=== PATIENT | male | born 1990 | race Caucasian/White ===

== ENCOUNTER 2019-01-16 15:29 | Emergency (ER) | payer OTHER ==
[2019-01-16 15:59] VITALS: BP 140/80
--- NOTE | 2019-01-16 15:59 | ED ---
Neck Pain - HPI Summary HPI Summary: 28 yr old male with the complaint of right mandibular neck pain. Onset over the past couple of months with associated feeling a mass in his neck area under the right side angle of mandible area. He states the pain has been radiating up into his right frontal area at times lasting a few seconds. He is pain free presently, but is concerned for an abscess or tumor. He denies change in vision, speech, hearing, swallowing. Denies focal weakness. Denies numbness. He states he has been able to drive his car and do what he normally does with no impairment. - History of Current Complaint Chief Complaint: UCHeadache Stated Complaint: JAW PAIN Time Seen by Provider: 01/16/19 15:42 Pain Intensity: 3 - Allergies/Home Medications Allergies/Adverse Reactions: Allergies Allergy/AdvReac Type Severity Reaction Status Date / Time No Known Allergies Allergy Verified 01/16/19 15:41 Home Medications: Home Medications Acetaminophen TAB* [Tylenol TAB*] 500 mg PO Q6HR 01/16/19 [History Confirmed 04/01] PMH/Surg Hx/FS Hx/Imm Hx Cardiovascular History: Reports: Hx Hypertension Musculoskeletal History: Denies: Hx Scoliosis Neurological History: Reports: Other Neuro Impairments/Disorders - ? 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 Infectious Disease History: No Infectious Disease History: Denies: Traveled Outside the [place] in Last 30 Days - Family History Known Family History: Positive: None - Social History Occupation: Employed Full-time Alcohol Use: None Substance Use Type: Reports: Marijuana Substance Use Comment - Amount & Last Used: occasional Hx Tobacco Use: Yes Smoking Status (MU): Current Every Day Smoker Review of Systems Constitutional: Negative Positive: Other - pain right neck, angle mandilbe with some mass All Other Systems Reviewed And Are Negative: Yes Physical Exam Triage Information Reviewed: Yes Vital Signs On Initial Exam: Initial Vitals Temp Pulse Resp Pulse Ox 96 F 94 18 98 01/16/19 15:32 01/16/19 15:32 01/16/19 15:32 01/16/19 15:32 Vital Signs Reviewed: Yes Appearance: Positive: Obese Skin: Positive: Warm, Skin Color Reflects Adequate Perfusion Head/Face: Positive: Normal Head/Face Inspection Eyes: Positive: EOMI, BLADIMIR ENT: Positive: Pharynx normal, TMs normal, Uvula midline, Other - right side of neck with small mass size of lymph node felt, and mild tender. He has obese neck so difficult to feel deeply. Patient feels the mass is a lot larger to him.. Negative: Trismus, Muffled voice, Hoarse voice Neck: Positive: Supple, Tenderness @ - angle mandible and upper anterior cervical area on right side. Respiratory/Lung Sounds: Positive: Clear to Auscultation, Breath Sounds Present. Negative: Stridor Cardiovascular: Positive: RRR. Negative: Murmur Abdomen Description: Negative: Distended Musculoskeletal: Positive: Strength/ROM Intact Neurological: Positive: Sensory/Motor Intact, Alert, Oriented to Person Place, Time, CN Intact II-III, Normal Gait, Speech Normal Psychiatric: Positive: Normal - Celia Coma Scale Best Eye Response: 4 - Spontaneous Best Motor Response: 6 - Obeys Commands Best Verbal Response: 5 - Oriented Coma Scale Total: 15 Diagnostics - Vital Signs Vital Signs Temp Pulse Resp Pulse Ox 01/16/19 15:32 96 F 94 18 98 - Laboratory Lab Statement: Any lab studies that have been ordered have been reviewed, and results considered in the medical decision making process. Neck Course/Dx - Course Course Of Treatment: 28 yr old male with right side neck pain and mild swelling. He does not want an ambulance. He wants to go to the ER by his own car. He seems stable to do that. He will require labs and iv contrast imaging to rule out mass. - Diagnoses Provider Diagnoses: Neck pain, Mass of right side of neck, Elevated blood pressure reading Discharge - Sign-Out/Discharge Documenting (check all that apply): Patient Departure All imaging exams completed and their final reports reviewed: No Studies - Discharge Plan Condition: Good Disposition: HOME-RECOMMEND TO ED Patient Education Materials: Mastoiditis in Children (ED), Neck Pain (ED), Hypertension (ED) Referrals: No Primary Care Phys,NOPCP [Primary Care Provider] - [facility] [Outside] Additional Instructions: Be sure to go to the ER immediately upon leaving here. You have been offered an ambulance but have stated you want to drive yourself. - Billing Disposition and Condition Condition: GOOD Disposition: Home-Recommend to ED
== END 2019-01-16 16:10 | disposition home health service (06) ==
LOC: UCEAST 15:29
DX: M54.2 Cervicalgia (principal); R22.1 Localized swelling, mass and lump, neck; R30.0 Dysuria; F17.210 Nicotine dependence, cigarettes, uncomplicated
CPT/HCPCS: 99212; G0463

== ENCOUNTER → 2019-01-16 16:33 | Emergency (ER) | payer OTHER ==
[~2019-01-16 16:33] MED LIST: Amoxicillin/Clavulanate TAB* 500 MG PO ONE; Iohexol 300* (CONTRAST) 10 ML SDV IV ONE
--- NOTE | 2019-01-16 18:06 | ED ---
Neck Pain - HPI Summary HPI Summary: 28 year old male presents with right-sided jaw pain for the past 2 days. He states he's had a lump for the past couple months. He states that couple days ago started draining. He denies any fevers. No sore throat. He states that his pain leading up to the side of his head. Denies any change in vision or hearing. Denies any dental pain. No sore throat. No chest pain or shortness breath. Has no medical conditions. - History of Current Complaint Chief Complaint: EDNeckComplaint Stated Complaint: MASS ON NECK PER PT Time Seen by Provider: 01/16/19 17:24 Pain Intensity: 1 - Allergies/Home Medications Allergies/Adverse Reactions: Allergies Allergy/AdvReac Type Severity Reaction Status Date / Time chloral hydrate Allergy See Comment Verified 01/16/19 18:39 PMH/Surg Hx/FS Hx/Imm Hx Endocrine/Hematology History: Denies: Hx Anticoagulant Therapy Cardiovascular History: Reports: Hx Hypertension Musculoskeletal History: Denies: Hx Scoliosis Neurological History: Reports: Other Neuro Impairments/Disorders - ? 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 Infectious Disease History: No Infectious Disease History: Denies: Traveled Outside the [place] in Last 30 Days - Family History Known Family History: Positive: None - Social History Alcohol Use: None Substance Use Type: Reports: Marijuana Substance Use Comment - Amount & Last Used: occasional Hx Tobacco Use: Yes Smoking Status (MU): Current Every Day Smoker Review of Systems Negative: Fever Positive: Other - jaw pain Negative: Chest Pain Negative: Shortness Of Breath All Other Systems Reviewed And Are Negative: Yes Physical Exam Triage Information Reviewed: Yes Vital Signs On Initial Exam: Initial Vitals Temp Pulse Resp BP Pulse Ox 97.0 F 86 16 155/111 97 01/16/19 16:37 01/16/19 16:37 01/16/19 16:37 01/16/19 16:37 01/16/19 16:37 Vital Signs Reviewed: Yes Appearance: Positive: Well-Appearing Skin: Positive: Warm, Dry Head/Face: Positive: Normal Head/Face Inspection Eyes: Positive: Normal, EOMI, BLADIMIR, Conjunctiva Clear ENT: Positive: Normal ENT inspection, Pharynx normal, TMs normal Neck: Positive: Supple, Other: - small mobile mass felt on right side neck Respiratory/Lung Sounds: Positive: Clear to Auscultation, Breath Sounds Present Cardiovascular: Positive: Normal, RRR Abdomen Description: Positive: Nontender, Soft Bowel Sounds: Positive: Present Musculoskeletal: Positive: Normal Neurological: Positive: Normal Psychiatric: Positive: Normal Diagnostics - Vital Signs Vital Signs Temp Pulse Resp BP Pulse Ox 01/16/19 16:37 97.0 F 86 16 155/111 97 - Laboratory Result Diagrams: 01/16/19 18:15 01/16/19 18:15 Lab Statement: Any lab studies that have been ordered have been reviewed, and results considered in the medical decision making process. - CT neck CT Interpretation Completed By: Radiologist Summary of CT Findings: IMPRESSION: No CT findings to correlate with patient's symptomatology. Specifically no. right neck masses or inflammation. Neck Course/Dx - Course Course Of Treatment: 28 year old male presents with right-sided jaw pain for the past 2 days. He states he's had a lump for the past couple months. He states that couple days ago started draining. He denies any fevers. No sore throat. He states that his pain leading up to the side of his head. Denies any change in vision or hearing. Denies any dental pain. No sore throat. No chest pain or shortness breath. Has no medical conditions. On exam has small mobile 1cm mass felt on right side of jaw We will get a CT. wbc and CRP normal. CT shows no acute findings. discussed could be abscess vs lymph node. will place on augmentin. told to follow up with [facility] as blood pressure is elevated at this time. denies any chest pain or SOB. patient understand and agrees with plan. - Diagnoses Differential Dx/HQI/PQRI: Positive: Other - abscess, lymphadenitits, osteo Provider Diagnoses: Neck mass Discharge - Sign-Out/Discharge Documenting (check all that apply): Patient Departure Patient Received Moderate/Deep Sedation with Procedure: No - Discharge Plan Condition: Good Disposition: HOME Prescriptions: Amoxicillin/Clavulanate TAB* [Augmentin TAB 500 mg*] 500 mg PO BID #13 tab Patient Education Materials: Adenitis (ED) Referrals: [facility] [Outside] Additional Instructions: nothing was seen on CT. on exam appears to most like lymph node Take augmentin twice a day for 7 days Can apply heat to the area Follow up with primary Return to ED if develop any new or worsening symptoms - Billing Disposition and Condition Condition: GOOD Disposition: Home
[2019-01-16 18:22] LABS: ABS Basophils 0.1 10^3/ul (0-0.2); ABS Eosinophils 0 10^3/ul (0-0.6); ABS Lymphocytes 2.7 10^3/ul (1.0-4.8); ABS Monocytes 0.4 10^3/ul (0-0.8); ABS Neutrophils 7.1 10^3/ul (1.5-7.7); ABS Nucleated RBC 0 10^3/ul; Eosinophil % 0.5 %; Hematocrit 46 % (42-52); Hemoglobin 15.8 g/dl (14.0-18.0); Lymphocyte % 26.2 %; Mean Corpuscular HGB Conc 35 g/dl (31-36); Mean Corpuscular Hemoglobin 29 pg (27-31); Mean Corpuscular Volume 84 fL (80-94); Mean Platelet Volume 6.9 fL (7.4-10.4); Nucleated Red Blood Cells % 0.1; Platelet Count 269 10^3/ul (150-450); Red Blood Count 5.43 10^6/ul (4.00-5.40); Red Cell Distribution Width 13 % (10.5-15); White Blood Count 10.3 10^3/ul (3.5-10.8)
[2019-01-16 18:40] LABS: Albumin 4.5 g/dL (3.2-5.2); Albumin/Globulin Ratio 1.6 (1-3); BUN/Creatinine Ratio 16.5 (8-20); C Reactive Protein 7.74 mg/L (<8.01); Calcium 9.1 mg/dL (8.6-10.3); EGFR African American 128.1 (>60); EGFR Non-African American 105.8 (>60); Globulin 2.9 g/dL (2-4); Potassium 3.8 mmol/L (3.5-5.0); Total Bilirubin 0.4 mg/dL (0.2-1.0); Total Protein 7.4 g/dL (6.4-8.9)
[2019-01-16 20:51] VITALS: BP 179/114
== END | disposition home or self-care (01) ==
LOC: ED 16:33
DX: R22.1 Localized swelling, mass and lump, neck (principal); R68.84 Jaw pain; F17.210 Nicotine dependence, cigarettes, uncomplicated
CPT/HCPCS: 36415; 70491; 80053; 85025; 86140; 99282; A9270-GY; Q9967

== ENCOUNTER 2019-09-28 16:34 | Emergency (ER) | payer OTHER ==
--- NOTE | 2019-09-28 17:09 | UC ---
Throat Pain/Nasal Ej HPI - HPI Summary HPI Summary: 29-year-old male comes a chief complaint of upper respiratory tract infection symptoms 3 days. Got runny nose sore throat cough chest congestion. No fevers measured. No wheezing. Had history of an asthma as a child but no longer has asthma. He's tried [id number] medications which do help with the symptoms. - History of Current Complaint Chief Complaint: UCRespiratory Stated Complaint: COLD SYMPTOMS Time Seen by Provider: 09/28/19 16:40 Pain Intensity: 0 - Allergies/Home Medications Allergies/Adverse Reactions: Allergies Allergy/AdvReac Type Severity Reaction Status Date / Time chloral hydrate Allergy See Comment Verified 09/28/19 16:50 Home Medications: Home Medications Guaifen/Dextromethorphan/PE [Mucinex Fast-Max Congest-Cough] 1 tab PO Q8HR 09/28 [History Confirmed 09/28/19] Guaifen/Phenyleph/Acetaminophn [Tylenol Sinus Severe Caplet] 1 tab PO Q8HR 09/28 [History Confirmed 09/28/19] PMH/Surg Hx/FS Hx/Imm Hx Previously Healthy: Yes Other History Of: Negative For: Anticoagulant Therapy - Surgical History Surgical History: None Surgery Procedure, Year, and Place: 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 - Family History Known Family History: Positive: None - Social History Alcohol Use: None Substance Use Type: Marijuana Substance Use Comment - Amount & Last Used: occasional Smoking Status (MU): Former Smoker When Did the Patient Quit Smoking/Using Tobacco: one year Review of Systems All Other Systems Reviewed And Are Negative: Yes Constitutional: Positive: Other - SEE HPI Skin: Positive: Negative Eyes: Positive: Negative ENT: Positive: Sore Throat, Nasal Discharge, Sinus Congestion Respiratory: Positive: Cough Cardiovascular: Positive: Negative Gastrointestinal: Positive: Negative Motor: Positive: Negative Neurovascular: Positive: Negative Musculoskeletal: Positive: Negative Neurological: Positive: Negative Psychological: Positive: Negative Is Patient Immunocompromised?: No Physical Exam Triage Information Reviewed: Yes Appearance: No Pain Distress, Well-Nourished, Ill-Appearing - MILD Vital Signs: Initial Vital Signs Temp 96.9 F 09/28/19 16:43 Pulse 98 09/28/19 16:43 Resp 18 09/28/19 16:43 Pulse Ox 98 11/15/19 16:43 Vital Signs Reviewed: Yes Eye Exam: Normal Eyes: Positive: Conjunctiva Clear ENT: Positive: Pharyngeal erythema, Nasal congestion, Nasal drainage, TMs normal Neck: Positive: Supple Respiratory: Positive: No respiratory distress, Rhonchi Cardiovascular: Positive: RRR Musculoskeletal: Positive: Strength Intact, ROM Intact Neurological: Positive: Alert, Muscle Tone Normal Psychological: Positive: Age Appropriate Behavior Skin Exam: Normal Throat Pain/Nasal Course/Dx - Course Course Of Treatment: DISCUSSED VIRAL VERSES BACTERIAL INFECTIONS AND THE ROLE OF ANTIBIOTICS. THE PATIENT PREFERS TO BE ON ANTIBIOTICS AT THIS TIME. - Differential Dx/Diagnosis Provider Diagnosis: Upper respiratory infection Discharge ED - Sign-Out/Discharge Documenting (check all that apply): Patient Departure All imaging exams completed and their final reports reviewed: No Studies - Discharge Plan Condition: Stable Disposition: HOME Prescriptions: Amoxicillin PO (*) [Amoxicillin 875 MG (*)] 875 mg PO BID #20 tab Fluticasone NASAL SPRAY 50MCG* [Flonase NASAL SPRAY 50MCG*] 2 spray BOTH NARES DAILY #1 btl Patient Education Materials: Upper Respiratory Infection (ED) Forms: *Work Release Referrals: Radha Anderson DO [Primary Care Provider] - Additional Instructions: FOLLOW UP WITH YOUR DOCTOR IF NOT COMPLETELY IMPROVED. GET REEVALUATED SOONER IF NOT IMPROVED OR WORSE OR ANY QUESTIONS OR CONCERNS. - Billing Disposition and Condition Condition: STABLE Disposition: Home
== END 2019-09-28 17:24 | disposition home or self-care (01) ==
LOC: UCEAST 16:34
DX: J06.9 Acute upper respiratory infection, unspecified (principal); Z87.891 Personal history of nicotine dependence; Z88.4 Allergy status to anesthetic agent
CPT/HCPCS: 99212; G0463

== ENCOUNTER 2020-01-29 11:39 | Emergency (ER) | payer OTHER ==
[2020-01-29 12:49] VITALS: BP 194/109
[2020-01-29] MEDS ORDERED: Lidocaine 2% PF * 5 ML VIAL INJ ONE (13:04)
--- NOTE | 2020-01-29 13:10 | UC ---
Skin Complaint HPI - HPI Summary HPI Summary: 29 yo male with swelling /tailbone pain x 3 days no f/c no injury Hx HTn no DM No hx of MRSA - History of Current Complaint Chief Complaint: UCBackPain Time Seen by Provider: 01/29/20 12:32 Stated Complaint: PAINFUL TAILBONE Hx Obtained From: Patient Onset/Duration: Sudden Onset, Lasting Days Timing: Constant Onset Severity: Mild Current Severity: Moderate Pain Intensity: 7 Pain Scale Used: 0-10 Numeric Location: Other - tailbone Character: Swelling, Raised, Painful Aggravating Factor(s): Touch, Other - sitting Alleviating Factor(s): Nothing Associated Signs & Symptoms: Positive: Tenderness - Allergy/Home Medications Allergies/Adverse Reactions: Allergies Allergy/AdvReac Type Severity Reaction Status Date / Time chloral hydrate Allergy See Comment Verified 01/29/20 12:49 Home Medications: Home Medications Cephalexin CAP* [Keflex CAP*] 500 mg PO QID #28 cap 01/29/20 [Rx] Chlorthalidone TAB* [Hygroton TAB*] 50 mg PO DAILY 01/29/20 [History Confirmed 01/29/20] HYDROcodone/ACETAMIN 5-325 MG* [Galliano 5-325 TAB*] 1 tab PO Q4H PRN #15 tab MDD 6 01/29/20 [Rx] amLODIPine TAB* [Norvasc 5 mg TAB*] 5 g PO DAILY 01/29/20 [History Confirmed ] PMH/Surg Hx/FS Hx/Imm Hx Previously Healthy: Yes - cerebral palsy Cardiovascular History: Hypertension Other History Of: Negative For: Anticoagulant Therapy - Surgical History Surgical History: None Surgery Procedure, Year, and Place: 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 - Family History Known Family History: Positive: Hypertension - Social History Alcohol Use: None Substance Use Type: Marijuana Substance Use Comment - Amount & Last Used: occasional Smoking Status (MU): Former Smoker When Did the Patient Quit Smoking/Using Tobacco: one year Review of Systems All Other Systems Reviewed And Are Negative: Yes Constitutional: Positive: Negative Skin: Positive: Other - tender/swollen Eyes: Positive: Negative ENT: Positive: Negative Respiratory: Positive: Negative Cardiovascular: Positive: Negative Gastrointestinal: Positive: Negative Genitourinary: Positive: Negative Motor: Positive: Negative Neurovascular: Positive: Negative Musculoskeletal: Positive: Negative Neurological/Mental Status: Positive: Negative Psychological: Positive: Negative Physical Exam Triage Information Reviewed: Yes Appearance: Well-Appearing, No Pain Distress, Well-Nourished Vital Signs: Initial Vital Signs Temp 98.7 F 01/29/20 12:46 Pulse 106 01/29/20 12:46 Resp 20 01/29/20 12:46 BP 194/109 01/29/20 12:46 Pulse Ox 99 01/29/20 12:46 Vital Signs Reviewed: Yes Eyes: Positive: Conjunctiva Clear ENT: Positive: Hearing grossly normal, Uvula midline. Negative: Nasal congestion, Nasal drainage, Trismus, Muffled voice, Hoarse voice Neck: Positive: Supple, Nontender, No Lymphadenopathy Respiratory: Positive: Lungs clear, Normal breath sounds, No respiratory distress, No accessory muscle use Cardiovascular: Positive: RRR, No Murmur Neurological: Positive: Alert Skin Exam: Other - tender/indurated/pilonidal cyst/not fluctuant Procedures - Procedure Summary Procedure Summary: Incision and drainage of pilonial abscess procedure explained time out sterile prep anest with 4 ml 2% lido incised some bloody/thin purulent d/c culture obtained dressing applied Course/Dx - Course Course Of Treatment: #: [id number] I-STOP - Diagnoses Provider Diagnosis: Pilonidal abscess Discharge ED - Sign-Out/Discharge Documenting (check all that apply): Patient Departure All imaging exams completed and their final reports reviewed: No Studies - Discharge Plan Condition: Stable Disposition: HOME Prescriptions: Cephalexin CAP* [Keflex CAP*] 500 mg PO QID #28 cap HYDROcodone/ACETAMIN 5-325 MG* [Galliano 5-325 TAB*] 1 tab PO Q4H PRN #15 tab MDD 6 PRN Reason: Pain - Severe Patient Education Materials: Pilonidal Cyst (ED) Referrals: Bran Ashley MD [Medical Doctor] - As Soon As Possible Additional Instructions: frequent warm soapy compresses you need to see a surgeon this week - Billing Disposition and Condition Condition: STABLE Disposition: Home
== END 2020-01-29 13:50 | disposition home or self-care (01) ==
LOC: UCEAST 11:39
DX: L05.01 Pilonidal cyst with abscess (principal); I10 Essential (primary) hypertension; G80.9 Cerebral palsy, unspecified; Z79.899 Other long term (current) drug therapy; Z87.891 Personal history of nicotine dependence; Z88.8 Allergy status to other drugs, medicaments and biological substances
CPT/HCPCS: 10060; 87070; 87205; 87640; 87641; 99212; G0463

== ENCOUNTER 2021-06-11 05:50 | Inpatient (IN) ==
[2021-06-11] MEDS ORDERED: Buffered Lidocaine 1% SYRIN 1 ml INTRADERM ONE ×2 (06:00→06:14)
[2021-06-11] MEDS ORDERED: Lactated Ringers 1000 ml BAG 1,000 ML IV SCH (06:00)
[2021-06-11] MEDS ORDERED: ceFAZolin 1 GM ADVAN 1 GM ADDV.VIAL IVPB ONE (06:14)
[2021-06-11] MEDS ORDERED: ceFAZolin 2 GM in NS PREMIX 2 GM/100 ML BAG IVPB ONE (06:14)
[2021-06-11] MEDS ORDERED: Heparin 5000 UNITS/ML 1 mL VIAL ONE (06:14)
[2021-06-11] MEDS ORDERED: Bupivacaine 0.25% EPI 200,000 30 ML SDV ONE (07:04)
[2021-06-11] MEDS ORDERED: Lidocaine 2% PF 5 ML VIAL ONE (07:27)
[2021-06-11] MEDS ORDERED: Propofol 10 MG/ML 20 ML BTL ONE (07:27)
[2021-06-11] MEDS ORDERED: Rocuronium 50 mg VIAL 10 mg/ml 5 ml VIAL (50 mg) ONE ×2 (07:28→08:17)
[2021-06-11] MEDS ORDERED: Succinylcholine 200 mg VIAL 20 mg/ml 10 ml VIAL (200 mg) ONE (07:28)
[2021-06-11] MEDS ORDERED: Midazolam 2 mg/2 ml VIAL 1 mg/ml 2 ml VIAL (2 mg) ONE (07:28)
[2021-06-11] MEDS ORDERED: fentaNYL 100 mcg/2 ml 50 MCG/ML VIAL ONE ×2 (07:29→08:24)
[2021-06-11] MEDS ORDERED: Dexamethasone IV 4 MG/ML VIAL 1 ml VIAL ONE (08:21)
[2021-06-11] MEDS ORDERED: Ondansetron 4 mg VIAL 2 MG/ML 2 ml VIAL ONE (08:21)
[2021-06-11] MEDS ORDERED: Sugammadex 500 MG/5 ML 5 ml VIAL IV PUSH ONE (09:09)
[2021-06-11] MEDS ORDERED: Acetaminophen IV 1 GM/100ML 100 ML IV ONE (09:09)
[2021-06-11] MEDS ORDERED: DiMENhydriNATE IV 50 mg/ml 1 ml VIAL IV PUSH PRN (09:18)
[2021-06-11] MEDS ORDERED: Naloxone 0.4 mg VIAL 0.4 mg/ml 1 ml VIAL IV PRN (09:18)
[2021-06-11] MEDS ORDERED: fentaNYL 100 mcg/2 ml 50 MCG/ML VIAL IV PRN (09:18)
[2021-06-11] MEDS ORDERED: HYDROcodone/ACET. 7.5/325 LIQ 15 ML UDC PO PRN (09:31)
[2021-06-11] MEDS ORDERED: HYDROmorphone 1 MG/1 ML SYRINGE IV SLOW PU PRN (09:31)
[2021-06-11] MEDS ORDERED: Ondansetron 4 mg VIAL 2 MG/ML 2 ml VIAL IV PRN (09:31)
[2021-06-11] MEDS ORDERED: HYDROmorphone 0.5 MG/0.5 ML SYRINGE IV SLOW PU PRN (09:31)
[2021-06-11] MEDS ORDERED: diPHENhydraMINE IV 50 MG/ML 1 ml VIAL (BENADRYL) SLOW PUSH PRN (09:31)
[2021-06-11] MEDS ORDERED: DiMENhydriNATE IV 50 mg/ml 1 ml VIAL ONE (09:41)
[2021-06-11] MEDS ORDERED: Haloperidol 5 mg/ml SDV IV/IM 5 MG/ML AMP ONE (10:02)
[2021-06-11] MEDS ORDERED: Haloperidol 5 mg/ml SDV IV/IM 5 MG/ML AMP IV SLOW PU ONE (10:04)
[2021-06-11] MEDS: Lactated Ringers 1000 ml BAG 1,000 ML IV SCH ×2 (10:50→17:42)
[2021-06-11] MEDS: Heparin 5000 UNITS/ML 1 mL VIAL SUBCUT SCH ×2 (14:32→21:57)
[2021-06-11] MEDS: Famotidine IV 10 MG/ML 2 ml VIAL (20 mg) IV SLOW PU SCH (21:57)
[2021-06-12] MEDS: Lactated Ringers 1000 ml BAG 1,000 ML IV SCH (01:55)
[2021-06-12] MEDS: Heparin 5000 UNITS/ML 1 mL VIAL SUBCUT SCH ×2 (05:45→14:09)
[2021-06-12] MEDS: Famotidine IV 10 MG/ML 2 ml VIAL (20 mg) IV SLOW PU SCH (09:05)
[2021-06-12] MEDS ORDERED: D5W 1/2 NS KCl 20 meq 1000 ml 1,000 ML IV SCH (10:00)
[2021-06-12 11:22] VITALS: BP 138/88
[2021-06-14] MEDS ORDERED: Scopolamine PATCH Remove NOTE PATCH OFF SCH (10:00)
== END 2021-06-12 14:30 | disposition home or self-care (01) | DRG 620 ==
LOC: AA 05:50 → SSU 10:41
PROVIDERS: ADMIT Surgery; ATTEND Surgery